=== PATIENT | male | born 1940 | race Two or more races ===

== ENCOUNTER 2021-09-29 18:32 | Emergency (ER) | payer OTHER ==
[~2021-09-29] VITALS: Ht 157.5 cm; Wt 68.0 kg
[~2021-09-29 18:32] MED LIST: DIPH50CA19 PO; LISI-275 PO; OMEP20CA74 PO
[2021-09-29 21:02] VITALS: BP 132/99
== END 2021-09-29 21:00 | disposition home or self-care (01) ==
LOC: ER 18:35
DX: S61.412A Laceration without foreign body of left hand, initial encounter (principal); R07.89 Other chest pain; I10 Essential (primary) hypertension; V43.52XA Car driver injured in collision with other type car in traffic accident, initial encounter; Y93.89 Activity, other specified; Y92.488 Other paved roadways as the place of occurrence of the external cause; Y99.8 Other external cause status
CPT/HCPCS: 71045; 93005